=== PATIENT | female | born 1985 | race Caucasian/White ===

== ENCOUNTER 2024-08-05 08:51 | Day surgery (SDC) | payer MEDICAID, SELFPAY ==
[2024-08-05] VITALS (11 sets, daily range): BP systolic 91–125; BP diastolic 56–81; PULSE 58–95; RESP 18; TEMP 36.9; O2SAT 94–100; BMI 35.9
--- NOTE | 2024-08-05 07:11 | IR_ITS ---
APPROVED REPORT Patient Location: Outpatient PROCEDURES Bilateral selective renal angiography INDICATION Hypertension, Abnormal renal duplex suggesting renal artery stenosis Informed consent was obtained prior to the procedure. COMPLICATIONS NONE Estimated Blood Loss: LESS THAN 10 ML TECHNIQUE One percent lidocaine used to anesthetize the right anterior aspect of the wrist. The right radial artery was accessed via the Seldinger technique. A 6 Cymro sheath was placed in the right radial artery. 2.5 mg of Verapamil, 800 mcg of nitroglycerin, 1mg Lidocaine and 5000 U Heparin were given through the arterial sheath. A 6 Cymro JR4 guide catheter was used to perform bilateral selective renal angiography. At the end of the procedure the sheath was removed good hemostasis was achieved using Traclet band, patient was transferred to the postop holding area in stable condition. ANGIOGRAPHIC RESULTS Right renal artery singular normal Left renal artery singular normal IMPRESSION Normal renal arteries False positive renal duplex PLAN 1. Treatment of essential hypertension Electronically signed by : Fabricio Morrison MD 08/05/2024 11:49:48
[2024-08-05 09:39] LABS: Basophils # 0.1 K/mm3 (0-0.2); Basophils % 0.9 % (0.1-2.0); Eosinophils # 0.3 K/mm3 (0.0-0.4); Eosinophils % 4.3 % (0.1-12.0); Hematocrit 48.5 % (37.0-47.0); Hemoglobin 15.8 g/dL (12.2-16.2); Lymphocytes # 1.6 K/mm3 (0.7-4.5); Lymphocytes % 23.5 % (10-50); Mean Corpuscular HGB Conc 32.5 g/dL (31.8-35.4); Mean Corpuscular Hemoglobin 30.2 pg (27.0-31.2); Mean Platelet Volume 6.8 fl (7.4-10.4); Monocytes # 0.3 K/mm3 (0.1-1.0); Monocytes % 4.6 % (1.7-9.3); Neutrophils # 4.6 K/mm3 (1.8-7.8); Neutrophils % 66.7 % (37.0-80.0); Platelet Count 274 K/mm3 (142-424); Red Blood Count 5.21 M/mm3 (4.20-5.40); Red Cell Distribution Width 13.3 % (11.5-17.5); White Blood Count 6.9 K/mm3 (4.8-10.8)
[2024-08-05 09:45] LABS: Chloride 105 mmol/L (98-107); Sodium 137 mmol/L (136-145)
[2024-08-05 09:46] LABS: Potassium 4.2 mmoL/L (3.5-5.1)
[2024-08-05 09:48] LABS: Blood Urea Nitrogen 15 mg/dl (7-17); Creatinine Clearance Estimated 213 mL/min (50-200); Estimated Glomerular Filt Rate 111 ml/min (>60); GFR (African American) 135 ML/MIN (>60)
[2024-08-05 09:49] LABS: Anion Gap 15.2 mEq/L (5-15); Calcium 9.3 mg/dl (8.4-10.2); Carbon Dioxide 21 mmol/L (22.0-30.0); Glucose 103 mg/dl (74-100)
[2024-08-05 10:05] LABS: HCG Qualitative, Serum Negative (Negative)
[2024-08-05] MEDS: VERAPAMIL 2.5MG/ML 2ML VIAL 2.5 MG IV (11:08)
[2024-08-05] MEDS: LIDOCAINE 1% 10ML MDV 20 ML IJ (11:08)
[2024-08-05] MEDS: HEPARIN 1,000 UNITS/ML 10ML VIAL (CATH LAB) 10000 UNIT IV (11:08)
[2024-08-05] MEDS: 0.9 % SODIUM CHLORIDE 500 ML 25 ML IV (11:09)
[2024-08-05] MEDS: diphenhydrAMINE 50MG/ML VIAL 50 MG IV (11:09)
[2024-08-05] MEDS: NITROGLYCERIN 800MCG/8ML SYR (CATH LAB) 800 MCG IA (11:09)
[2024-08-05] MEDS: HEPARIN 1,000 UNITS/500ML NS (CATH LAB) 3000 UNIT IV (11:09)
[2024-08-05] MEDS: MIDAZOLAM HCL 1MG/ML 5ML VIAL 1 MG IV (11:43)
[2024-08-05] MEDS: FENTANYL 100MCG/2ML VIAL 50 MCG IV (11:44)
--- NOTE | 2024-08-05 13:45 | SUR.PHASEII ---
berenice ellsworth walked into the patient's room and patient had removed her radial band herself. no bleeding noted. area cleansed, 2x2s applied, and tegaderm applied. bleeding controlled. attempted to hook patient back up to blood pressure cuff, cardiac surgeon, and o2 sat after pt removed it herself and she demanded to go home. explained risks and benefits. pt verbalized understanding.
[2024-08-05] MEDS: IOPAMIDOL-370 (76%);100ML BOTTLE 20 ML IV (13:54)
== END 2024-08-05 13:54 | disposition home or self-care (01) ==
PROVIDERS: PCP Physician Assistant; Visit Provider Internal Medicine
DX: I70.1 Atherosclerosis of renal artery (principal); F17.290 Nicotine dependence, other tobacco product, uncomplicated; I10 Essential (primary) hypertension; R93.429 Abnormal radiologic findings on diagnostic imaging of unspecified kidney; Z79.899 Other long term (current) drug therapy; I27.20 Pulmonary hypertension, unspecified; I15.0 Renovascular hypertension
CPT/HCPCS: 36252; 80048; 84703; 85025; 99152; 99153; C1725; C1760; C1769; J1200; J1644; J2250; J3010; Q9967

== ENCOUNTER 2024-12-09 10:42 | Outpatient (CLI) | payer MEDICAID, SELFPAY ==
--- NOTE | 2024-12-09 10:47 | CT_ITS ---
APPROVED REPORT Finance Clerk: CLINICAL INDICATION Chest Pain TECHNIQUE Image Acquisition: A 128 slice MDCT scanner (P-[employer] View) was used for data acquisition. A noncontrast coronary calcium scan was performed. A CT attenuation threshold of 130 Hounsfield units (HU) was used for the detection of calcium in contiguous voxels of 1 sq mm in area to be counted as individual lesions. Bolus tracking in the ascending aorta with a threshold of 180 HU was performed. Immediately afterwards, ECG synchronized cardiac CT was then performed from the cardiac base to apex using retrospective gating with ECG tube current modulation. A total of 85 mL of Isovue 370 mg/mL contrast medium was administered at 5 mL/sec followed by a saline flush using a biphasic injection protocol. A tube voltage of 120 KVp was used. The patient received the following medications prior to the cardiac CT. 25 mg of oral metoprolol 2.5 mg of intravenous metoprolol 15 mg of oral ivabradine The average heart rate at the time of acquisition was 70 bpm and regular. Image Reconstruction Transaxial images were reconstructed at 0.67 mm slide thickness. Data was reviewed interactively on an advanced workstation capable of 2 and 3-dimensional displays in all conventional reconstruction formats, including multiplanar reformations, maximum intensity projections, curved multiplanar reformations, and volume rendered reconstructions. When applicable, selected routine images describing the relevant coronary anatomy and pathology were saved and sent to PACS. Complications None Technical Quality Overall image quality was good. Coronary artery opacification was adequate. Total DLP (Dose-Length Product) is 1419.1 mGy-cm. The reported value represents the total of one or more individual components during the CT acquisition of this date and at this time, and as such, the same value may appear in more than one CT report depending on the interpreting/reporting physicians. COMPARISON None FINDINGS CT Coronary Calcium Scoring LMA (Left Main Artery) = 0 LAD (Left Anterior Descending) = 0 LCX (Left Coronary Circumflex) = 0 RCA (Right Coronary Artery) = 0 Total Calcium Score = 0 using the AJ-130 method. The interpretation of the calcium heart score is based on the following continuum*: 0 = no calcified plaque detected (risk of coronary artery disease is very low ??? less than 5%) 1-10 = calcium detected in extremely minimal levels (risk of coronary diseases is still low ??? less than 10%) 11-100 = mild levels of plaque detected with certainty (mild or minimal narrowing of heart arteries is likely) 101-400 = definite,at least moderate levels of plaque detected (relatively high risk of a heart attack within 3-5 years) >401-999 = extensive levels of plaque detected (high risk of heart attack, high levels of vascular disease are present, high likelihood of at least one significant coronary narrowing) *The calcium heart score quantifies the burden of coronary calcification/plaque in the coronary arteries. The calcium heart score is not able to evaluate the presence or burden of non-calcified (i.e. soft) plaque. There is no identifiable calcification in the aortic valve, mitral annulus or mitral valve, pericardium, or myocardium. Coronary CT Angiography The coronary arterial system is right dominant. Quantitative Stenosis Grading: Left Main (LM): The left main originates normally from the left sinus of Valsalva. The LM bifurcates into the left anterior descending artery and left circumflex artery. The LM is patent with no evidence of atherosclerosis. Left Anterior Descending (LAD) and Diagonal Branches: The LAD gives off 2 diagonal branch(es). The LAD and its branches are patent with no evidence of atherosclerosis. There is no evidence of LAD-myocardial bridge. Left Circumflex (LCX) and Obtuse Marginals (OM): The LCX gives off 1 Obtuse Marginal (OM) branch(es). The LCX and its branches are patent with no evidence of atherosclerosis. Right Coronary Artery (RCA): The RCA originates normally from the right sinus of Valsalva. The RCA gives off a posterior descending artery (PDA) and posterolateral (PL) branches. The RCA and its branches are patent with no evidence of atherosclerosis. Non-Coronary Cardiac Findings: Analysis of the left ventricular (LV) structure and function was performed after 3-D reconstruction of the LV from axial images, with user-corrected automatic contouring for assessment of LV volumes and user-defined reconstruction from oblique planes for measurement of 3-D cardiac structure and function. -The left ventricle systolic function is normal. -There is no left atrial appendage filling defect. Two right pulmonary veins and two left pulmonary veins drain normally into the left atrium. -No pericardial thickening or calcification. -Central and branch pulmonary arteries in the [id number] are unremarkable. -Thoracic aorta within the visualized thoracic aortic-branches in the [id number] is unremarkable. Extracardiac Structures No significant extra-cardiac findings. Note, however, that this study is focused on the cardiac findings. IMPRESSION -Absence of coronary calcification with an Agatston score = 0 using the AJ-130 method. -No evidence of significant flow-limiting atherosclerosis of the coronary arteries. -No evidence of coronary anomalies or myocardial bridges. -CAD-RADS 0. Management recommendations per ACC/AHA guidelines*, as clinically appropriate. *Recommendations: CAD RADS 0: Reassurance. Consider non-atherosclerotic causes of chest pain. CAD RADS 1: Consider non-atherosclerotic causes of chest pain. Consider preventive therapy and risk factor modification. CAD RADS 2: Consider non-atherosclerotic causes of chest pain. Consider preventive therapy and risk factor modification, particularly for patients with nonobstructive plaque in multiple segments. CAD RADS 3: Consider further functional testing. Consider symptom-guided anti-ischemic and preventive pharmacotherapy as well as risk factor modification per published guideline statements. CAD RADS 4A: Consider further functional testing or invasive coronary angiography with revascularization per published guideline statements. Consider symptom-guided anti-ischemic and preventive pharmacotherapy as well as risk factor modification per published guideline statements. CAD RADS 4B: Invasive coronary angiography recommended with revascularization per published guideline statements. Consider symptom-guided anti-ischemic and preventive pharmacotherapy as well as risk factor modification per published guideline statements. CAD RADS 5: Consider invasive angiography and/or viability assessment with revascularization per published guideline statements. Consider symptom-guided anti-ischemic and preventive pharmacotherapy as well as risk factor modification per published guideline statements. CRITICAL RESULT None COMMUNICATION Per this written report The coronary and cardiac findings of this CCTA were reviewed, reported, and signed by Kye Ariza MD (Paper Stripper) Conclusion Electronically signed by : Nidia Ariza MD 12/09/2024 14:37:12
[2024-12-09 10:57] VITALS: BMI 35.4
[2024-12-09 11:05] VITALS: BP 110/70; PULSE 77; RESP 18; O2SAT 97
[2024-12-09] MEDS: IVABRADINE HCL 7.5MG TABLET PO (12:06)
[2024-12-09] MEDS: METOPROLOL TARTRATE 50MG TABLET PO (12:06)
[2024-12-09 12:18] LABS: Chloride 102 mmol/L (98-107); Potassium 3.9 mmoL/L (3.5-5.1); Sodium 136 mmol/L (136-145)
[2024-12-09 12:21] LABS: Anion Gap 9.9 mEq/L (5-15); Blood Urea Nitrogen 16 mg/dl (7-17); Calcium 9.3 mg/dl (8.4-10.2); Carbon Dioxide 28 mmol/L (22.0-30.0); Creatinine Clearance Estimated 158 mL/min (50-200); Estimated Glomerular Filt Rate 80 ml/min (>60); GFR (African American) 97 ML/MIN (>60); Glucose 83 mg/dl (74-100); HCG Qualitative, Serum Negative (Negative)
[2024-12-09 13:05] VITALS: BP 96/50; PULSE 61; RESP 18; O2SAT 97
[2024-12-09 13:15] VITALS: BP 92/60; PULSE 64; RESP 18; O2SAT 97
[2024-12-09] MEDS: IOPAMIDOL-370 (76%);100ML BOTTLE 85 ML IV (13:19)
[2024-12-09] MEDS: 0.9 % SODIUM CHLORIDE 50 ML VIAL IV (13:19)
[2024-12-09] MEDS: SODIUM CHLORIDE 0.9% 10ML SYR (RAD ONLY) 10 ML IV (13:19)
[2024-12-09 13:23] VITALS: BP 107/67; PULSE 68; RESP 18; O2SAT 97
[2024-12-09] MEDS: METOPROLOL TARTRATE 5MG/5ML VIAL 5 MG IV (13:26)
== END 2024-12-09 13:31 | disposition home or self-care (01) ==
PROVIDERS: PCP Physician Assistant; Visit Provider Registered Nurse
DX: I20.9 Angina pectoris, unspecified (principal)
CPT/HCPCS: 75574; 80048; 84703; Q9967